=== PATIENT | male | born 1980 | race Caucasian/White ===

== ENCOUNTER 2022-03-15 00:27 | Inpatient (IN) | payer OTHER ==
[~2022-03-15] VITALS: Ht 188 cm; Wt 165.8 kg
[2022-03-15 02:54] LABS: Source, Urine Foley catheter
[2022-03-15 03:01] LABS: Bilirubin, Urine Neg (Neg); Blood, Urine 3+ (Neg); Glucose Qualitative, Urine Neg (Neg); Ketones, Urine Neg (Neg); Leukocyte Esterase, Urine 1+ (Neg); Nitrite, Urine Neg (Neg); Protein, Urine 2+ (Neg); Urobilinogen, Urine 1+ (Normal)
[2022-03-15 03:05] LABS: Appearance, Urine Clear (Clear); Color, Urine Yellow (P-Yellow)
[2022-03-15 03:08] LABS: Bacteria Not Seen /hpf; Granular Casts 0-2 /lpf (0); Squamous Epithelial Cells Rare /hpf (Few); White Blood Cells, Urine 0-2 /hpf (0-5)
[2022-03-15] MEDS ORDERED: HUMIRA40 MG/0.2 INJ (03:17)
[2022-03-15] MEDS ORDERED: CARV3.125 PO (03:17)
[2022-03-15] MEDS ORDERED: NAPR220 PO (03:18)
[2022-03-15] MEDS ORDERED: LISI5 PO (03:18)
[2022-03-15] MEDS ORDERED: OMEP20ER PO (03:19)
[2022-03-15] MEDS ORDERED: ZINC220 PO (03:19)
[2022-03-15 03:25] LABS: BASOPHILS ABSOLUTE AUTO 0.04 K/mm3 (0.00-0.23); BASOPHILS PERCENT AUTO 1 % (0-2); EOSINOPHILS ABSOLUTE AUTO 0.07 K/mm3 (0.00-0.68); EOSINOPHILS PERCENT AUTO 1 % (0-6); Hematocrit 41.3 % (37.0-53.0); Hemoglobin 13.4 g/dL (13.5-17.5); IMMATURE GRAN ABSOLUTE AUTO 0.06 K/mm3 (0.00-0.10); IMMATURE GRAN PERCENT AUTO 1 % (0-1); LYMPHOCYTES ABSOLUTE AUTO 1.49 K/mm3 (0.84-5.20); LYMPHOCYTES PERCENT AUTO 20 % (21-46); MONOCYTES ABSOLUTE AUTO 0.73 K/mm3 (0.16-1.47); MONOCYTES PERCENT AUTO 10 % (4-13); Mean Corpuscular HGB 31.1 pg (26.0-34.0); Mean Corpuscular HGB Conc 32.4 g/dL (31.5-36.5); Mean Corpuscular Volume 96 fL (80-100); Mean Platelet Volume 9.4 fL (9.1-12.4); NEUTROPHILS ABSOLUTE AUTO 5.01 K/mm3 (1.96-9.15); NEUTROPHILS PERCENT AUTO 68 % (41-73); Platelet Count 285 K/mm3 (150-400); RDW Standard Deviation 52.4 fL (35.1-46.3); Red Blood Cell Count 4.31 M/mm3 (4.30-5.90)
[2022-03-15 04:29] LABS: Albumin/Globulin Ratio 0.9 (0.8-1.8); Bilirubin, Total 0.4 mg/dL (0.1-1.0); Bun/Creatinine Ratio 19.9 (12.0-20.0); Creatinine, Blood 0.75 mg/dL (0.60-1.20); Globulin, Blood 3.4 g/dL (2.2-4.0); Potassium, Blood 4.5 mmol/L (3.5-5.5); Thyroid Stimulating Hormone 1.86 uIU/mL (0.360-4.800); Total Protein, Blood 6.4 g/dL (6.4-8.2)
[2022-03-15 04:43] LABS: PCO2 Arterial 44.4 mmHg (35-45); PO2 Arterial 82.6 mmHg (80-100); pH Blood Arterial 7.47 (7.35-7.45)
--- NOTE | 2022-03-15 06:15 | NUR ---
PT ARRIVED BY AMBULANCE THIS MORNING AROUND 0245 GM INTUBATED AND ON PROPOFOL W/TEMP MIRANDA & TWO PIV. EMT DOSED PT WITH PROPOFOL BOLUS FOR SEVERE AGITATION. DRIPS TITRATED TO COMFORT. RESTRAINTS INITIATED - MD BEDSIDE. SKIN CKECK PERFORMED W/RAMÓN RIBERA. PT RESTING IN BED - SIGNIFICANT OTHER UPDATED OVER THE PHONE (NISSHA). WILL CONTINUE TO MONITOR OXYGENATION AND EVALUATE RESTRAINT.
--- NOTE | 2022-03-15 07:11 | NUR ---
TOOK OVER CARE OF PT AT 0700. PT VENTILATED ON ACVC 22/500/70%/6. PROPOFOL DRIP AT 40
--- NOTE | 2022-03-15 13:44 | NUR ---
VENT SETTING INCREASED TO PEEP OF 15, 80% FiOZ
[2022-03-15 17:51] LABS: Adenovirus Not Detected (NOT DETECT); Coronavirus 229E Not Detected (NOT DETECT)
[2022-03-15 17:52] LABS: Bordetella pertussis Not Detected (NOT DETECT); Chlamydophila pneumoniae Not Detected (NOT DETECT); Coronavirus HKU1 Not Detected (NOT DETECT); Coronavirus NL63 Not Detected (NOT DETECT); Coronavirus OC43 Not Detected (NOT DETECT); Human Metapneumovirus Not Detected (NOT DETECT); Human Rhinovirus/Enterovirus Not Detected (NOT DETECT); Influenza A/2009-H1 Not Detected (NOT DETECT); Influenza A/H1 Not Detected (NOT DETECT); Influenza A/H3 Not Detected (NOT DETECT); Influenza B Not Detected (NOT DETECT); Mycoplasma pneumoniae Not Detected (NOT DETECT); Parainfluenza Virus 1 Not Detected (NOT DETECT); Parainfluenza Virus 2 Not Detected (NOT DETECT); Parainfluenza Virus 3 Not Detected (NOT DETECT); Parainfluenza Virus 4 Not Detected (NOT DETECT); Respiratory Syncytial Virus Not Detected (NOT DETECT); SARS-Cov-2 (COVID-19), BioFire Not Detected (NOT DETECT)
--- NOTE | 2022-03-15 18:42 | NUR ---
SUMMARY NEURO: PT FOLLOWS COMMANDS ON ALL EXTREMETIES, QUICK TO RESPOND ON AFTER SEDATION PAUSED. ABLE TO OPEN EYES WITH 60MCG OF PROPOFOL GTT. PERRLA. NEEDS PRN'S TO TOLERATE TURNS. LUNGS: WHEEZY THROUGHOUT THIS MORNING. COARSE UPPER LOBES, DIMINISHED BASES. SPUTUM CULTURE BACK POSITIVE FOR MANY GRAM (+) COCCI AND FEW GRAM (-) BACILLI. PCR NEGATIVE. RECENT POSITIVE COVID19 DURING ADMISSION AT [facility] A COUPLE WEEKS AGO. FIGHTS VENTILATOR AND DESATS QUICKLY. ETCO2 WHEN SEDATED IS AROUND 33. ATELECTASIS SHOWN IN CT CHEST FROM [facility]. ET TUBE WAS ADVANCED FROM 22-25 THIS SHIFT. GI: LIWS OBTAINED 450ML OF BILE. HYPOACTIVE BOWEL SOUNDS, FIRM AND DISTENDED ABDOMEN. HX OF CROHNS AND YVAN ANAL ABCESSES. : MIRANDA IN PLACE. HAZY KALEY URINE. PURULENT DRAINAGE AROUND URETHRAL OPENING. LOW URINE OUTPUT. SKIN: MELANIA BLE, SCATTERED SCABS/LESIONS CARIAC: HX OF RECENT NC. ECH COMPLETED TODAY
--- NOTE | 2022-03-15 22:22 | NUR ---
ASSUMED PT CARE AT 1900 PT IS INTUBATED AND SEDATED. PROPOFOL AT 60MCG/KG/MIN AND PRECEDEX AT 0.4 MCG/KG/HR. VENT AC/VC 22, VT 500, PEEP 15, FIO2 80%, RR 22, SPO2 93%, ETCO2 33. PT NOT RESPONSIVE AT THIS TIME; THEREFORE, DECREASED PROPOFOL TO 55MCG/KG/MIN. OG TO LIS WITH GREEN BILE OUT. MIRANDA IS PATENT AND DRAINING DARK YELLOW/GREEN URINE TO GRAVITY. FAMILY IN TO VISIT EARLIER WITH UPDATES GIVEN ON PT'S CONDITION. SEE SHIFT ASSESSMENT FOR FURTHER DETAILS
[2022-03-16 04:14] LABS: BASOPHILS ABSOLUTE AUTO 0.04 K/mm3 (0.00-0.23); BASOPHILS PERCENT AUTO 1 % (0-2); EOSINOPHILS ABSOLUTE AUTO 0.13 K/mm3 (0.00-0.68); EOSINOPHILS PERCENT AUTO 2 % (0-6); Hematocrit 43.2 % (37.0-53.0); Hemoglobin 13.9 g/dL (13.5-17.5); IMMATURE GRAN ABSOLUTE AUTO 0.06 K/mm3 (0.00-0.10); IMMATURE GRAN PERCENT AUTO 1 % (0-1); LYMPHOCYTES ABSOLUTE AUTO 1.49 K/mm3 (0.84-5.20); LYMPHOCYTES PERCENT AUTO 21 % (21-46); MONOCYTES ABSOLUTE AUTO 0.83 K/mm3 (0.16-1.47); MONOCYTES PERCENT AUTO 12 % (4-13); Mean Corpuscular HGB 31.1 pg (26.0-34.0); Mean Corpuscular HGB Conc 32.2 g/dL (31.5-36.5); Mean Corpuscular Volume 97 fL (80-100); Mean Platelet Volume 10.1 fL (9.1-12.4); NEUTROPHILS ABSOLUTE AUTO 4.68 K/mm3 (1.96-9.15); NEUTROPHILS PERCENT AUTO 65 % (41-73); Platelet Count 288 K/mm3 (150-400); RDW Coefficient Variation 15.7 % (11.7-14.2); RDW Standard Deviation 55.8 fL (35.1-46.3); Red Blood Cell Count 4.47 M/mm3 (4.30-5.90); White Blood Cell Count 7.23 K/mm3 (4.00-11.30)
[2022-03-16 04:32] LABS: Albumin/Globulin Ratio 0.9 (0.8-1.8); Bilirubin, Total 0.4 mg/dL (0.1-1.0); Bun/Creatinine Ratio 16.6 (12.0-20.0); Calcium, Blood 8.8 mg/dL (8.5-10.1); Creatinine, Blood 0.73 mg/dL (0.60-1.20); Globulin, Blood 3.4 g/dL (2.2-4.0); Magnesium, Blood 2.4 mg/dL (1.6-2.4); Phosphorus, Blood 4.2 mg/dL (2.5-4.9); Total Protein, Blood 6.4 g/dL (6.4-8.2)
--- NOTE | 2022-03-16 05:45 | NUR ---
END OF SHIFT SUMMARY NO SIGNIFICANT CHANGES SINCE LAST ENTRY. SEDATION DECREASED DOWN TO 40MCG/KG/MIN ON THE PROPOFOL. PRECEDEX REMAINS AT 0.4 MCG/KG/HR. PT ABLE TO GRIMACE AND WITHDRAWAL FROM NOXIOUS STIMULI. UNABLE TO OPEN EYES OR FOLLOW COMMANDS. OCCASIONALLY PT WILL HAVE COUGHING EPISODES, TRIGGERING HIGH PEAK PRESSURES; HOWEVER, IF LEFT ALONE PT WILL RECOVER WITH NO FURTHER INTERVENTION NEEDED. VITAL SIGNS HAVE BEEN STABLE THIS SHIFT, SEE FLOWSHEET. MIRANDA CATHETER PUTTING OUT DARK YELLOW/GREEN URINE; 1400CC ACCOUNTED FOR THIS SHIFT. OG REMAINS TO LIS WITH LARGE AMOUNTS OF GREEN BILE; SEE I/O. WILL CONTINUE TO MONITOR UNTIL REPORT IS HANDED OFF TO ONCOMING RN.
--- NOTE | 2022-03-16 08:00 | NUR ---
TOOK OVER CARE OF PT AT 0700. PT VENTED ON VCAC 22/500/80%/15. PROPOFOL AT 40, AND PRECEDEX RUNNING AT .4
[2022-03-16 11:23] LABS: Prolactin 19.7 ng/mL (2.5-17.4)
--- NOTE | 2022-03-16 17:45 | NUR ---
SUMMARY NEURO: PT WAS ASSED DURING SEDATION VECATION THIS AM. PT WOULD NOT RESPOND TO DEEP PAIN STIMULI IN BUE, BLE WERE STIFF IN DECERBRATE POSITION WITH SLIGHT TREMOR OF THE RIGHT LEG. PT ONLY OPENED THEIR EYES AFTER VIGOROUS STERNAL RUB. STILL NO MOVMENT IN UPPER EXTREMETIES. PUPILS REACTIVE AND EQUAL AT THIS TIME. CONCERN FOR POSSIBLE SEIZURE, PT WAS THEN GIVEN 4MG ATIVAN PUSH, SOON AFTER HE WAS ABLE TO PURPOSFULLY MOVE ALL EXTREMETIES. SEDATION WAS RESTARTED BEFORE PT HAD OPPORTUNITY TO FOLLOW COMMANDS IF ABLE. SEDATION WAS OFF FOR 15 MINUTES. PREVIOUSLY ON 03/15 PT WAS ABLE TO OPEN THEIR EYES ON 60MCG OF PROPOFOL AND FOLLOWED COMMANDS AFTER SEDATION WAS ONLY PAUSED FOR 2 MINUTES. PROLACTIN LEVELS DRAWN FROM AM LABS OF 19.7 LUNGS: VENTILATED ON ACVC, 22/500/15/80%. DIMINISHED UPPER LOBES, ABSENT BASES. PT REQUIRING MORE FIO2 DURING DEEP TURNS TOWARDS THE RIGHT. ETCO2 MID 30'S CARDIAC: NSR, HR IN 80'S, TRACE EDEMA BLE. ECHO STILL NOT RESULTED. SKIN: CHRONIC MELANIA/BROWN DISCOLORED BLE, SCATTERED LESIONS/SCABS. GI: LIWS WITH 500ML TOTAL THIS SHIFT OF GREEN BILE. : TEA COLORED URINE. MIRANDA CARE COMPLETED TWICE AND IODINE USED AROUND URETHRA.
--- NOTE | 2022-03-16 19:15 | NUR ---
ASSUMPTION OF CARE PT REMAINS INTUBATED WITH VENT SETTINGS AC/VC+ 22/500/15/80%. HE IS RECEIVING PROPOFOL 40MCG/KG/MIN, PRECEDEX 0.4MCG/KG/HR, AND NS TKO. SINUS ON MONITOR WITH RATE IN 80S. SBP 140S. CORE TEMP 100.9. MULTIPLE ICE PACKS PLACED AND FAN PLACED ON BEDSIDE TABLE. MIRANDA PATENT AND DRAINING TEA COLORED URINE WITH LARGE AMOUNT OF SEDIMENT. SEE SHIFT ASSESSMENT.
--- NOTE | 2022-03-16 20:31 | NUR ---
INITIAL ASSESSMENT PROPOFOL TITRATED TO 20MCG/KG/MIN AND PRECEDEX CONTINUED AT 0.4MCG/KG/HR. HE IS ABLE TO OPEN EYES TO VERBAL STIMULI. AT FIRST HE HAD A SOMEWHAT UPWARD GAZE BUT HE TRACKS MOVEMENTS AND WILL MAKE EYE CONTACT IF DIRECTED. HE MAKES SMALL PURPOSEFUL MOVEMENTS WTIH ALL EXTREMITIES. HE HAS STRONG BILAT HAND SQUEEZES, WIGGLES TOES TO COMMAND. HE NODS/SHAKES HEAD TO ANSWER QUESTIONS. HE APPEARS TO FOLLOW CONVERSATION BY FACIAL EXPRESSIONS AND HEAD NODDING. WHEN TOLD HE IS IN [place] AT [facility], HE NODS HEAD YES. INFORMED FAMILY HAS CALLED FOR UPDATES, HE SMILES AND NODS. WHEN ASKED IF HE IS IN PAIN, HE NODS HEAD YES. OCCASIONAL GRIMACING. MEDICATED PER EMAR AND PROPOFOL TITRATED BACK TO 40MCG/KG/MIN. NO CHANGES IN HR OR BP DURING THIS TIME. SINCE APPLICATION OF ICE PACKS AND FAN, CORE TEMP HAS DECREASED TO 100.2.
--- NOTE | 2022-03-17 05:19 | NUR ---
SHIFT SUMMARY PT REMAINS INTUBATED WITH VENT SETTINGS AC/VC 22/500/15/55%. HE IS RECEIVING PROPOFOL 40MCG/KG/MIN, PRECEDEX 0.4MCG/KG/HR, AND NS TKO. EVEN WITH SEDATION, HE OCCASIONALLY MAKES SMALL MOVEMENTS WITH EXTREMITIES AND FACIAL EXPRESSIONS. OGT CONNECTED TO LOW INT SUCTION, 300ML OF GREEN BILE THIS SHIFT. BOWEL TONES HYPOACTIVE. MIRANDA PATENT, DRAINING TEA COLORED URINE WITH MODERATE AMOUNT OF SEDIMENT. BILAT SOFT WRIST RESTRAINTS REMAIN IN PLACE. VSS THROUGHOUT SHIFT. WILL REPORT TO ONCOMING RN.
--- NOTE | 2022-03-17 07:24 | NUR ---
TOOK OVER CARE OF PT AT 0700, PT VENTED ON ACVC 22/500/55%/15. PT SEDATED WITH 40 OF PROPOFOL AND .4 OF PRECEDEX
--- NOTE | 2022-03-17 18:11 | NUR ---
SUMMARY NEURO; PT FOLLOWED COMMANDS WITH ALL EXTREMETIES WITH EQUAL STRENGTH DURING SEDATION VACATION, PUPILS EQUAL,ROUND, REACTIVE. ALL BRAINSTEM REFLEXES INTACT. LUNGS: LUNGS SOUND IMPROVING IN LOWER LOBES. COPIOUS SECERETIONS. GI; UPPER QUADRANTS ARE ABSENT OF BOWEL SOUNDS, HYPOACTIVE IN LOWER QUADRANTS. 900ML OF OG OUTPUT. NO BOWEL MOVEMENT SINCE ADMISSION : KALEY COLORED URINE, PURULENT URETHRAL DRAINAGE. CARDIAC; ON TELEMETR, TRACE EDEMA BUE AND BLE, BROWN DISCOLORED LE'S
--- NOTE | 2022-03-17 19:10 | NUR ---
ASSUMPTION OF CARE PT REMAINS INTUBATED WITH VENT SETTINGS AC/VC+ 22/500/15/55%. HE IS RECEIVING PROPOFOL 60MCG/KG/MIN, PRECEDEX 0.4MCG/KG/HR, AND NS TKO. OGT TO LOW INT SUCTION DRAINING GREEN BILE. BOWEL TONES HYPOACTIVE. LUNGS CLEAR AND DIM THROUGHOUT. MODERATE THICK/CLEAR ETT SECRETIONS. LARGE AMOUNT OF THIN/CLEAR ORAL SECRETIONS. MIRANDA PATENT AND DRAINING TEA COLORED URINE TO GRAVITY. CORE TEMP 100.5. MEDICATED PER EMAR, ICE PACKS AND FAN APPLIED. VSS AT THIS TIME. SEE SHIFT ASSESSMENT.
[2022-03-18 03:50] LABS: BASOPHILS ABSOLUTE AUTO 0.03 K/mm3 (0.00-0.23); BASOPHILS PERCENT AUTO 1 % (0-2); EOSINOPHILS PERCENT AUTO 3 % (0-6); Hematocrit 40.7 % (37.0-53.0); Hemoglobin 13.9 g/dL (13.5-17.5); IMMATURE GRAN ABSOLUTE AUTO 0.05 K/mm3 (0.00-0.10); IMMATURE GRAN PERCENT AUTO 1 % (0-1); LYMPHOCYTES PERCENT AUTO 19 % (21-46); MONOCYTES ABSOLUTE AUTO 0.57 K/mm3 (0.16-1.47); MONOCYTES PERCENT AUTO 9 % (4-13); Mean Corpuscular HGB 32.9 pg (26.0-34.0); Mean Corpuscular HGB Conc 34.2 g/dL (31.5-36.5); Mean Corpuscular Volume 96 fL (80-100); Mean Platelet Volume 10.2 fL (9.1-12.4); NEUTROPHILS ABSOLUTE AUTO 4.36 K/mm3 (1.96-9.15); NEUTROPHILS PERCENT AUTO 68 % (41-73); Platelet Count 294 K/mm3 (150-400); RDW Coefficient Variation 15.5 % (11.7-14.2); RDW Standard Deviation 55.4 fL (35.1-46.3); Red Blood Cell Count 4.23 M/mm3 (4.30-5.90); White Blood Cell Count 6.41 K/mm3 (4.00-11.30)
[2022-03-18 05:19] LABS: PCO2 Arterial 49.9 mmHg (35-45); PO2 Arterial 67.1 mmHg (80-100); pH Blood Arterial 7.44 (7.35-7.45)
--- NOTE | 2022-03-18 06:34 | NUR ---
SHIFT SUMMARY PT REMAINS INTUBATED WITH VENT SETTINGS AC/VC+ 22/500/10/55%. HE IS RECEIVING PROPOFOL 50MCG/KG/MIN, PRECEDEX 0.4MCG/KG/HR, AND NS TKO. NO ACUTE CHANGES OVER NIGHT. MODERATE AMOUNT OF THICK WHITE ETT SECRETIONS, LARGE AMOUNT OF CLEAR ORAL SECRETIONS. BOWEL TONES HYPOACTIVE. OGT CONNECTED TO LOW INT SUCTION, 950ML GREEN BILE THIS SHIFT. MIRANDA PATENT AND DRAINING TO GRAVIT. URINE IS TEA COLORED WITH MODERATE AMOUNT OF SEDIMENT AND SHIFT OUTPUT OF 275ML. VSS. WILL REPORT TO ONCOMING RN.
[2022-03-18 07:52] LABS: Albumin, Blood 2.8 g/dL (3.4-5.0); Albumin/Globulin Ratio 0.7 (0.8-1.8); Bilirubin, Total 0.6 mg/dL (0.1-1.0); Bun/Creatinine Ratio 17.5 (12.0-20.0); Creatinine, Blood 0.63 mg/dL (0.60-1.20); Globulin, Blood 3.9 g/dL (2.2-4.0); Magnesium, Blood 2.2 mg/dL (1.6-2.4); Total Protein, Blood 6.7 g/dL (6.4-8.2)
--- NOTE | 2022-03-18 14:53 | NUR ---
DR SANABRIA ROUNDED NO NEW ORDERS, DR STONER ROUNDED REPORTED, INCREASED SECRETIONS, RESTRAINTS IN PLACE, LIQUICIL DOUBLE DOSE FOR NUTRITION FOR PATIENT PER SUPERVISOR PLASTERING, REPORTED TO DR STONER, TM
--- NOTE | 2022-03-18 19:10 | NUR ---
ASSUMED CARE. REPORT RECEIVED FROM NATY RIBERA. PT IN BED, SEDATED AND VENTILATED VIA ETT. VENT SETTINGS: AC/VC 22/500/15/55%. OG TUBE IN PLACE TO LOW INT SUCTION. PG IN JENNY, IV IN R/HAND. PROPOFOL AT 70 MCG/KG/MIN, PRECEDEX 0.8 MCG/KG/HR, D5/1/2NS AT 75 ML/HR. MIRANDA IN PLACE. SWB RESTRAINTS IN PLACE. VS STABLE, WILL CONTINUE TO MONITOR.
[2022-03-19 04:06] LABS: Source, Urine Foley catheter
[2022-03-19 04:10] LABS: Bilirubin, Urine Neg (Neg); Blood, Urine 4+ (Neg); Glucose Qualitative, Urine Neg (Neg); Ketones, Urine Neg (Neg); Leukocyte Esterase, Urine Neg (Neg); Nitrite, Urine Neg (Neg); Protein, Urine 3+ (Neg); Urobilinogen, Urine NORM (Normal)
[2022-03-19 04:21] LABS: BASOPHILS ABSOLUTE AUTO 0.02 K/mm3 (0.00-0.23); BASOPHILS PERCENT AUTO 0 % (0-2); EOSINOPHILS ABSOLUTE AUTO 0.14 K/mm3 (0.00-0.68); EOSINOPHILS PERCENT AUTO 2 % (0-6); Hematocrit 44.5 % (37.0-53.0); Hemoglobin 14.1 g/dL (13.5-17.5); IMMATURE GRAN ABSOLUTE AUTO 0.07 K/mm3 (0.00-0.10); IMMATURE GRAN PERCENT AUTO 1 % (0-1); LYMPHOCYTES ABSOLUTE AUTO 1.27 K/mm3 (0.84-5.20); LYMPHOCYTES PERCENT AUTO 17 % (21-46); MONOCYTES ABSOLUTE AUTO 0.63 K/mm3 (0.16-1.47); MONOCYTES PERCENT AUTO 9 % (4-13); Mean Corpuscular HGB 30.7 pg (26.0-34.0); Mean Corpuscular HGB Conc 31.7 g/dL (31.5-36.5); Mean Corpuscular Volume 97 fL (80-100); Mean Platelet Volume 9.5 fL (9.1-12.4); NEUTROPHILS ABSOLUTE AUTO 5.24 K/mm3 (1.96-9.15); NEUTROPHILS PERCENT AUTO 71 % (41-73); Platelet Count 272 K/mm3 (150-400); RDW Coefficient Variation 15.1 % (11.7-14.2); RDW Standard Deviation 54.4 fL (35.1-46.3); White Blood Cell Count 7.37 K/mm3 (4.00-11.30)
[2022-03-19 04:28] LABS: Appearance, Urine Hazy (Clear); Color, Urine Yellow (P-Yellow)
[2022-03-19 04:29] LABS: Bacteria Rare /hpf; Squamous Epithelial Cells Few /hpf (Few); White Blood Cells, Urine Not Seen /hpf (0-5)
[2022-03-19 04:30] LABS: Amorphous Light (0-Heavy); Mucus Mod (0-Heavy)
[2022-03-19 04:46] LABS: Albumin, Blood 2.7 g/dL (3.4-5.0); Anion Gap 5 mmol/L (6-16); Blood Urea Nitrogen 11 mg/dL (8-24); Bun/Creatinine Ratio 16.6 (12.0-20.0); CO2, Blood 33 mmol/L (21-32); Calcium, Blood 8.9 mg/dL (8.5-10.1); Chloride, Blood 103 mmol/L (98-108); Creatinine, Blood 0.66 mg/dL (0.60-1.20); Glomerular Filtration Rate 121 (60-); Glucose, Blood 125 mg/dL (70-99); Phosphorus, Blood 3.7 mg/dL (2.5-4.9); Potassium, Blood 3.7 mmol/L (3.5-5.5); Sodium, Blood 141 mmol/L (136-145)
--- NOTE | 2022-03-19 06:30 | NUR ---
SHIFT SUMMARY. PT CONTINUES VENTILATED AND SEDATED, FIO2 TITRATED UP TO 75 DURING SHIFT, CURRENT SETTINGS: AC/VC+ 22/500/15/75%. PROPOFOL AT 70 MCG/KG/MIN, PRECEDEX AT 1 MCG/KG/HR, D5/ 1/[address], 500 MLS OUT THIS SHIFT. TEMP MIRANDA REPLACED DURING SHIFT, URINE OUTPUT 3150 MLS. VS STABLE SEE SHIFT ASSESSMENT FOR FURTHER DETAILS. WILL CONTINUE TO MONITOR AND REPORT OFF TO DAYSHIFT RN.
--- NOTE | 2022-03-19 08:13 | NUR ---
ASSUMED CARE BEDSIDE REPORT FROM SHAY RIBERA AT 0700. PT INTUBATED AND SEDATED. VENT SETTINGS AC/VC+ 22/500/0.9/15/75%. LUNGS INITIALLY COARSE, DIM IN BASES AFTER BREATHING TX AND SUCTION. THIN CLEAR SECRETIONS THROUGH ETT. O2 SATS MID 90'S. BED CPT STARTED. PROPOFOL AND PRECEDEX GTT FOR SEDATION. PT NOT RESPONSIVE TO PAINFUL STIMULI, GRIMACES c ORAL CARE. DOES NOT FOLLOW COMMANDS. WILL TITRATE SEDATION DOWN. OGT TO LIS, GREEN BILE OUT, CLAMPED FOR MEDS. ABD OBESE, SOFT, NON TENDER. HYPOACTIVE BT. TEMP PROBE MIRANDA PATENT, DRAINING CLEAR YELLOW URINE TO GRAVITY. TEMP 100.7, FANS PLACED. PIV X 2, POWERGLIDE TO RUE, DRESSING C/D/I. WILL CONTINUE TO MONITOR.
--- NOTE | 2022-03-19 09:18 | NUR ---
SEDATION VACATION WHEN PROPOFOL AT 45 MCG/KG/MIN, PRECEDEX 1.0 MCG/KG/HR, PT ABLE TO OPEN EYES SPONT, FOLLOW SIMPLE COMMANDS. SHAKES HEAD YES WHEN ASKED ABOUT PAIN. MEDICATED c FENTANYL PRN.
--- NOTE | 2022-03-19 17:38 | NUR ---
SHIFT SUMMARY PT REMAINS INTUBATED AND SEDATED. PROPOFOL AND PRECEDEX GTT FOR SEDATION. OCCASIONALLY COUGHS, PULLS ON RESTRAINTS. MEDICATED c FENTANYL PRN. FOLLOWS COMMANDS WHEN SEDATION LIGHTENED. VENT SETTINGS AC/VC+ 22/500/0.9/18/60%%. LUNGS DIM. MOSTLY THIN SECRETIONS, OCCASIONAL THICK YELLOW. CT COMPLETED, RIGHT PE, LOVENOX STARTED. SR, RATE 70'S. BP STABLE. OGT TO LIS, 450 ML GREEN BILE OUT. MIRANDA PATENT, DRAINED 1100 ML KALEY URINE TO GRAVITY. IBUPROPEN AND FAN FOR TEMP. WILL CONTINUE TO MONITOR UNTIL REPORT TO ONCOMING NURSE.
--- NOTE | 2022-03-19 19:12 | NUR ---
Assumed care. Report received from colin RIBERA. Pt sedated and ventilated, vent settings: AC/VC+ 22/500/18/60%. OG tube in place, low intermittent suction. Propofol at 55 mcg/kg/min, precedex 1.4 mcg/kg/hr, D5/1/2NS 75 ml/hr. Richards in place, draining to gravity. Will continue to monitor.
[2022-03-20 04:18] LABS: Albumin, Blood 2.6 g/dL (3.4-5.0); Anion Gap 6 mmol/L (6-16); Blood Urea Nitrogen 13 mg/dL (8-24); Bun/Creatinine Ratio 19.1 (12.0-20.0); CO2, Blood 31 mmol/L (21-32); Calcium, Blood 8.7 mg/dL (8.5-10.1); Chloride, Blood 104 mmol/L (98-108); Creatinine, Blood 0.68 mg/dL (0.60-1.20); Glomerular Filtration Rate 120 (60-); Glucose, Blood 157 mg/dL (70-99); Phosphorus, Blood 3.9 mg/dL (2.5-4.9); Potassium, Blood 3.7 mmol/L (3.5-5.5); Sodium, Blood 141 mmol/L (136-145)
--- NOTE | 2022-03-20 06:25 | NUR ---
SHIFT SUMMARY. PT CONTINUES ON VENTILATOR, NO CHANGES TO SETTINGS THIS SHIFT. AVE PEAK PRESSURES SHALINI FROM HIGH TWENTIES TO MID THIRTIES, O2 SATS REMAIN IN 90s. 75O MLS GREEN/BILE OUT OF OG TUBE. IV PUMP SETTINGS: PROPOFOL 65 MCG/KG/MIN, PRECEDEX 1.4 MCG/KG/HR, D5/1/2NS AT 75 ML/HR. ADDITIONAL ATIVAN/FENTANYL GIVEN FOR COMFORT/AGITATION, SEE EMAR. 750 MLS DARK/TEA COLORED URINE OUT OF MIRANDA. VS STABLE THROUGHOUT SHIFT, SEE ASSESSMENT FOR FURTHER DETAILS. WILL CONTINUE TO MONITOR AND REPORT OFF TO DAYSHIFT RN.
--- NOTE | 2022-03-20 07:54 | NUR ---
ASSUMED CARE BEDSIDE REPORT FROM SHAY RIBERA. PT INTUBATED AND SEDATED. VENT SETTINGS AC/VC+ 22/500/0.9/18/60%. LUNGS DIM IN BASES. SCANT SECRETIONS FROM ETT, THIN WHITE. O2 SATS >96%. PROPOFOL AND PRECEDEX FOR SEDATION. PT c SLIGHT GRIMACE TO ORAL CARE ONLY, NO OTHER RESPONSE TO PAINFUL STIMULI. WILL TITRATE SEDATIVES DOWN. SR, RATE 70'S. BP STABLE. FEBILE, ICE PACKS AND FANS IN PLACE. OGT CLAMPED FOR MEDS. ABD OBESE, DISTENDED. HYPOACTIVE BT. MIRANDA PATENT, DRAINING KALEY/TEA COLORED URINE TO GRAVITY. WILL CONTINUE TO MONITOR.
--- NOTE | 2022-03-20 17:07 | NUR ---
SHIFT SUMMARY NO ACUTE CHANGES THIS SHIFT. REMAINS INTUBATED AND SEDATED. VENT SETTINGS AC/VC+ 22/500/0.9/18/60%. O2 SATS >94%. LUNGS DIM, SMALL AMOUNT OF THIN CLEAR SECRETIONS THROUGH ETT, MODERATE AMOUNT OF ORAL SECRETIONS. COUGH/GAG REFLEX. PROPOFOL AND PRECEDEX GTT FOR SEDATION, MEDICATED c FENTANYL PRN. PT ABLE TO FOLLOWS SIMPLE COMMANDS. VOGT. NODS HEAD TO QUESTIONS. SR, RATE 70'S. BP STABLE. OGT CLAMPED, 500 ML GREEN BILE OUT THIS SHIFT. ABD FIRM, DISTENDED. HYPOACTIVE BT. SUPPOSITORY GIVEN THIS SHIFT, NO BM. MIRANDA PATENT, DRAINED 750 TEA COLORED URINE. WILL CONTINUE TO MONITOR UNTIL REPORT TO ONCOMING NURSE.
--- NOTE | 2022-03-20 19:00 | NUR ---
ASSUMED CARE ASSUMED CARE OF PATIENT. REMAINS INTUBATED- AC/VC+ 22/500/18/60%. RR 22. SEDATED WITH PRECEDEX AT 1.4MCG/KG/HR AND PROPOFOL AT 65MCG/KG/MIN. WITHDRAWS EXTREMITIES SLIGHTLY TO NOXIOUS STIMULI. NOT FOLLOWING ANY COMMANDS. BILATERAL SOFT WRIST RESTRAINTS IN PLACE TO PROTECT TUBES/LINES. MONITOR SHOWS NSR, RATE 70s. BP STABLE. TEMP 100.2F VIA MIRANDA TEMP PROBE. OG CLAMPED PER ORDER. MIRANDA PATENT AND DRAINING DARK YELLOW URINE. 1/2NS INFUSING AT 75CC/HR PER ORDER. SEE SHIFT ASSESSMENT FOR FULL ASSESSMENT.
[2022-03-21 04:21] LABS: BASOPHILS ABSOLUTE AUTO 0.03 K/mm3 (0.00-0.23); BASOPHILS PERCENT AUTO 0 % (0-2); EOSINOPHILS ABSOLUTE AUTO 0.19 K/mm3 (0.00-0.68); EOSINOPHILS PERCENT AUTO 2 % (0-6); Hemoglobin 13.5 g/dL (13.5-17.5); IMMATURE GRAN ABSOLUTE AUTO 0.12 K/mm3 (0.00-0.10); IMMATURE GRAN PERCENT AUTO 2 % (0-1); LYMPHOCYTES ABSOLUTE AUTO 1.64 K/mm3 (0.84-5.20); LYMPHOCYTES PERCENT AUTO 20 % (21-46); MONOCYTES ABSOLUTE AUTO 0.68 K/mm3 (0.16-1.47); MONOCYTES PERCENT AUTO 8 % (4-13); Mean Corpuscular HGB 30.4 pg (26.0-34.0); Mean Corpuscular HGB Conc 31.4 g/dL (31.5-36.5); Mean Corpuscular Volume 97 fL (80-100); Mean Platelet Volume 9.9 fL (9.1-12.4); NEUTROPHILS PERCENT AUTO 68 % (41-73); Platelet Count 278 K/mm3 (150-400); RDW Coefficient Variation 14.8 % (11.7-14.2); RDW Standard Deviation 53.4 fL (35.1-46.3); Red Blood Cell Count 4.44 M/mm3 (4.30-5.90); White Blood Cell Count 8.26 K/mm3 (4.00-11.30)
[2022-03-21 04:36] LABS: Albumin, Blood 2.4 g/dL (3.4-5.0); Anion Gap 5 mmol/L (6-16); Blood Urea Nitrogen 16 mg/dL (8-24); Bun/Creatinine Ratio 26.2 (12.0-20.0); CO2, Blood 29 mmol/L (21-32); Calcium, Blood 8.5 mg/dL (8.5-10.1); Chloride, Blood 106 mmol/L (98-108); Creatinine, Blood 0.61 mg/dL (0.60-1.20); Glomerular Filtration Rate 124 (60-); Glucose, Blood 114 mg/dL (70-99); Potassium, Blood 3.8 mmol/L (3.5-5.5); Sodium, Blood 140 mmol/L (136-145)
--- NOTE | 2022-03-21 06:26 | NUR ---
SHIFT SUMMARY REMAINS INTUBATED- VENT SETTINGS UNCHANGED. PT HAS HAD SIGNIFICANT INCREASE IN ORAL SECRETIONS. REQUIRES FREQUENT SUCTIONING OF COPIOUS AMOUNTS OF FROTHY CLEAR ORAL SECRETIONS. ALSO NOTED SOME INCREASE IN ETT SECRETIONS. STILL SEDATED WITH PROPOFOL AT 65MCG/KG/MIN AND PRECEDEX AT 1.4MCG/KG/HR. PT IS MORE AWAKE THIS AM WITH PERIODS OF AGITATION. MEDICATED WITH ATIVAN 2MG IV X 3 DOSES AND FENTANYL 50MCG IV X 1 DOSE FOR SEDATION ADJUNCT. PT MOVES ALL EXTREMITITES SPONTANEOUSLY AND WITHDRAWS TO NOXIOUS STIMULI. INTERMITTENTLY FOLLOWS SIMPLE COMMANDS THIS AM. VSS. TMAX 100.8F. OG REMAINS CLAMPED. MIRANDA PATENT- DRAINING DARK TEA-COLORED URINE. 1/2NS INFUSING AT 75CC/HR CARL ORDER. WILL REPORT TO ONCOMING RN WHEN AVAILABLE.
--- NOTE | 2022-03-21 08:30 | NUR ---
ASSUMED CARE BEDSIDE REPORT FROM TRANG RIBERA AT 0700. PT INTUBATED AND SEDATED. PT ASYNCHRONOUS c VENT, HIGH PEAK PRESSURES, COUGHING FREQUENTLY, COPIOUS ORAL SECRETION, MODERATE THIN CLEAR SECRETIONS FROM ETT. ATTEMPTED TO INCREASE SEDATION s SUCCESS. VENT SETTINGS CHANGED TO SPONT 8/18/50%, PT TOLERATING WELL, RR HIGH 20'S, TV HIGH 300'S. LUNGS DIM IN BASES. PROPOFOL AND PRECEDEX GTT FOR SEDATION, FENTANYL PRN. PT FOLLOWS SIMPLE COMMANDS. SR, RATE 90-100'S. BP STABLE. OGT CLAMPED. ABD DISTENDED, FIRM, HYPOACTIVE BT. MIRANDA PATENT, DRAINING TEA COLORED URINE TO GRAVITY. WILL CONTINUE TO MONITOR.
--- NOTE | 2022-03-21 12:24 | NUR ---
EXTUBATION PT ON SPONT, TOLERATING WELL. PROPOFOL AND PRECEDEX PLACED ON STANDBY. EXTUBATED AT 1130. WEAK, HOARSE VOICE. A&OX 3. PLACED ON HIGHFLOW, MOUTH BREATHING. O2 SATS > 90%.
--- NOTE | 2022-03-21 16:48 | NUR ---
Pt requested meeting with Palliative care to discuss POLST, choose decision maker, and fill out an Advanced Directive. He is alert and oriented and has chosen his S/O Katelinha Adityasmyer to make his medical decisions in the event he is incapacitated and unable to make them for himself. Advanced Directive paperwork given to pt rober. Pt states he'll review it tonight, and fill it out tomorrow.
--- NOTE | 2022-03-21 17:41 | NUR ---
SHIFT SUMMARY PT EXTUBATED THIS SHIFT. SEE PREVIOUS NOTE. PT ON 10L VIA HFNC. LUNGS COARSE, DIM IN BASES. PRODUCTIVE COUGH c THIN CLEAR SECRETIONS. ABLE TO MANAGE SECRETIONS c YANKEUR. VOICE STRONGER, A&OX 3. SLOW TO RESPOND. PASSED BEDSIDE SWALLOW. ADVANCING DIET TOLERATED. 2 LOOSE BMS THIS SHIFT. MIRANDA PATENT, DRAINED 1150 ML KALEY URINE TO GRAVITY. PT ABLE TO USE CALL LIGHT AND MAKE NEEDS KNOWN. GENERALIZED WEAKNESS. WILL CONTINUE TO MONITOR UNTIL REPORT TO ONCOMING NURSE.
--- NOTE | 2022-03-21 19:00 | NUR ---
ASSUMED CARE ASSUMED CARE OF PATIENT. AWAKE AND ALERT, WATCHING TV. ORIENTED X 3. PT STATES HE IS UNCLEAR ON RECENT EVENTS, THOUGH. CALM AND COOPERATIVE. C/O MILD SOB/DYSPNEA WITH EXERTION. FREQUENT COUGH- USING YANKAUER TO SUCTION SELF. SHALLOW RESPIRATIONS AT TIMES. O2 10L HFNC. C/O PAIN IN MID-CHEST AND UPPER ABDOMEN WITH DEEP BREATHING, COUGHING, AND MOVING. MONITOR SHOWS ST, RATE 120s. BP 164/106- PT RECEIVED ZESTRIL 5MG PO 30 MINUTES AGO. TEMP 100.2F VIA MIRANDA TEMP PROBE. TOLERATINT FULL LIQUID DIET. MIRANDA PATENT AND DRAINING TO GRAVITY- KALEY URINE. SEE SHIFT ASSESSMENT FOR FULL ASSESSMENT.
--- NOTE | 2022-03-21 20:45 | NUR ---
PAIN/HYPERTENSION DR. STONER NOTIFIED OF CONTINUED C/O CHEST/ABDOMEN PAIN WITH COUGHING, DEEP BREATHING, AND MOVING. NEW ORDER RECEIVED FOR A ONE TIME DOSE OF MOTRIN 600MG PO. ALSO NOTIFIED OF CONTINUED HYPERTENSION- NEW ORDER RECEIVED FOR HYDRALAZINE IV PRN.
--- NOTE | 2022-03-22 03:00 | NUR ---
MIRANDA CATHETER PT C/O FEELING LIKE HE "REALLY HAS TO URINATE". MIRANDA APPEARS TO BE DRAINING ADEQUATELY. CATHETER FLUSHED- NO RESISTANCE NOTED AND IMMEDIATE RETURN OF FLUSH AND URINE. BLADDER SCAN DONE AT THIS TIME- SHOWS MINIMAL URINE IN BLADDER.
--- NOTE | 2022-03-22 06:24 | NUR ---
SHIFT SUMMARY NO ACUTE CHANGES DURING NOC. REMAINS ON NRB 10L- SATS STABLE. CONTINUES WITH FREQUENT COUGH, PRODUCTIVE OF CLEAR SECRETIONS. DYSPNEA/SOB WITH EXERTION. CONTINUES TO C/O PAIN IN MID-CHEST/UPPER ABDOMEN WITH COUGHING, DEEP BREATHING, AND MOVING. MEDICATED WITH FENTANYL 50MCG IV X 5 DOSES AND ATIVAN 2MG IV X 2 DOSES FOR COMFORT. VSS. OCCASIONALLY HYPERTENSIVE. TMAX 100.4F. TOLERATING FULL LIQUID DIET. MIRANDA PATENT AND DRAINING TO GRAVITY- DARK YELLOW URINE. PASSED SEVERAL LOOSE STOOLS DURING SHIFT. WILL REPORT TO ONCOMING RN WHEN AVAILABLE.
--- NOTE | 2022-03-22 07:11 | NUR ---
ASSUME CARE: I have assumed care of pt at this time.
--- NOTE | 2022-03-22 14:50 | NUR ---
ASSUMPTION OF CARE PATIENT ALERT AND ORIENTED X 4, AFEBRILE. COMPLAINTS OF PAIN IN R CHEST AND THAT PAIN IS GREATER WHEN TAKES DEEP BREATH. SCHEDULED AND PRN PAIN MEDICATIONS BEING GIVEN. SBA WITH FFF. WEAK BUT ABLE TO MOVE ALL EXTREMITIES. PATIENT DEPRESSED. TEARFUL AT TIMES. PATIENT SATTING IN 90S ON VENTI MASK AT 14 L AND 55% FIO2. LUNGS CLEAR IN UPPER LOBES AND DIMINISHED IN LOWER LOBES. SOB WITH EXERTION. PRODUCTIVE COUGH NOTED. PATIENT IN ST, HR IN THE 1-TEENS. SBP IN THE 150S. SORE NOTED ON TONGUE; PATIENT STATES IT IS FROM A TOP TOOTH AND BOTTOM TOOTH PINCHING IT AND THAT IT WAS THERE BEFORE ADMIT. PATIENT STATES HE HAS NEW BROKEN TOP, R, BACK TOOTH. ABDOMEN MODERATELY DISTENDED. PATIENT ON REGULAR DIET. PATIENT OLIGURIC. RUBEN HUMPHREY'Carroll THIS AM PER REPORT. BROWN DISCOLORATION NOTED TO LES. NO OTHER SKIN ISSUES OBSERVED AT THIS TIME. IV FLUSHED AND SALINE LOCKED. PATIENT IN CHAIR. CALL LIGHT IN REACH. WILL CONTINUE TO MONITOR FREQUENTLY THROUGHOUT SHIFT.
--- NOTE | 2022-03-22 18:29 | NUR ---
SHIFT SUMMARY PATIENT REMAINED A AND O. PATIENT REMAINED AFEBRILE. PATIENT GIVEN PRN OXYCODONE OT FOR COMPLAINTS OF PAIN IN R CHEST WITH DEEP BREATHING. PATIENT REMAINED IN CHAIR; SHIFTING OWN HIPS. PATIENT REMAINED ON VENTI MASK AT 14 L AND 55% FIO2. PATIENT CONTINUED TO HAVE PRODUCTIVE COUGH. PATIENT REMAINED IN ST,HR LOW 100S TO 1-TEENS. SBP 120S TO 150S. NO BM SINCE TOOK OVER. TOLERATING REGULAR DIET WELL. URINE DARK TEA IN COLOR. PATIENT STATED HE IS "TRYING TO DRINK MORE WATER". NO CHANGES TO SKIN NOTED. IV SALINE LOCKED. ADMIT DATA COMPLETED. CALL LIGHT IN REACH. NO COMPLAINTS AT THIS TIME. REPORT WILL BE GIVEN TO ASSUMING SKETCH ARTIST NURSE SHORTLY.
--- NOTE | 2022-03-22 19:22 | NUR ---
ASSUMPTION OF CARE PT IS ALERT AND ORIENTED X4, SITTING UP IN THE CHAIR. CONVERSATION IS APPROPRIATE. OXYGEN SAT >90% ON VENTURI MASK 14L 55%. ST ON THE TENANT COORDINATOR W/BP W/IN NORMAL LIMITS. NO COMPLAINTS FROM PT AT THIS TIME /NO S/S OF ACUTE DISTRESS NOTED AT TIME OF ASSUMPTION OF CARE. PT DENIES ANY NEEDS.
[2022-03-23 06:20] LABS: Hematocrit 41.5 % (37.0-53.0); Hemoglobin 13.4 g/dL (13.5-17.5); Mean Corpuscular HGB 30.9 pg (26.0-34.0); Mean Corpuscular HGB Conc 32.3 g/dL (31.5-36.5); Mean Corpuscular Volume 96 fL (80-100); Mean Platelet Volume 9.5 fL (9.1-12.4); Platelet Count 273 K/mm3 (150-400); RDW Coefficient Variation 14.2 % (11.7-14.2); RDW Standard Deviation 50.3 fL (35.1-46.3); Red Blood Cell Count 4.34 M/mm3 (4.30-5.90); White Blood Cell Count 9.87 K/mm3 (4.00-11.30)
[2022-03-23 06:41] LABS: Albumin, Blood 2.8 g/dL (3.4-5.0); Anion Gap 6 mmol/L (6-16); Blood Urea Nitrogen 11 mg/dL (8-24); Bun/Creatinine Ratio 19.6 (12.0-20.0); CO2, Blood 31 mmol/L (21-32); Calcium, Blood 9.1 mg/dL (8.5-10.1); Chloride, Blood 101 mmol/L (98-108); Creatinine, Blood 0.56 mg/dL (0.60-1.20); Glomerular Filtration Rate 127 (60-); Glucose, Blood 109 mg/dL (70-99); Potassium, Blood 3.4 mmol/L (3.5-5.5); Sodium, Blood 138 mmol/L (136-145)
--- NOTE | 2022-03-23 07:00 | NUR ---
ASSUME CARE: I have assumed care of pt at this time.
--- NOTE | 2022-03-23 19:14 | NUR ---
SHIFT SUMMARY: Neuro: pt a/o x4. He is ambulatory with standby assist. Showered with minimal assistance today. Cardiac: SR to ST Respiratory: Venti mask titrated down to 11L 45%. He uses 10L NC for meals and transferring. GI/: voiding without difficulty. BM today. tolerating regular diet well Skin: no new breakdown noted
--- NOTE | 2022-03-23 20:00 | NUR ---
ASSUMED CARE OF PT AT 1915. REPORT RECEIVED. PT PRESENTS IN ROOM SITTING UP IN RECLINER CHAIR. PT ALERT AND ORIENTED. PLEASANT AND COOPERATIVE WITH CARE AND ASSESSMENT. NO COMPLAINTS OF DYSPNEA AT THIS TIME. PERFERS TO USE VENTURI MASK FOR HIGHER FLOW OXYGEN. PT COMPLIANT WITH KEEPING MASK IN PLACE. WILL REVIEW CHART AND PLAN OF CARE FOR THIS PT.
--- NOTE | 2022-03-23 22:00 | NUR ---
PT'S MAGUI CALLS TO INQUIRE ABOUT PATIENT. PASSWORD GIVEN ACCURATELY. UPDATE GIVEN. SHE STATES THAT SHE IS CONCERNED ABOUT PT'S MEMORY HAVING LAPSES. ALLOWED FOR HER TO EXPRESS HER FEELINGS AND FRUSTRATIONS. ALLOWED HER TO PARTICIPATE IN PLAN OF CARE TO HELP PT WITH MEMORY RECALL. NOTE GENERATED THAT WAS GIVEN TO PT TO HELP HIM RECALL SOME OF THE CONCERNS MAGUI HAS ADDRESSED.
--- NOTE | 2022-03-24 01:33 | NUR ---
REPORT CALLED TO U FOR TRANSFER. REPORT GIVEN IN SBAR FASHION. ALLOWED FOR QUESTIONS. PT IN AGREEMENT OF TRANSFER. PT LEAVES UNIT IN STABLE CONDITION WITH PERSONAL BELONGINGS.
[2022-03-24 04:02] LABS: Hematocrit 39.6 % (37.0-53.0); Hemoglobin 12.9 g/dL (13.5-17.5); Mean Corpuscular HGB 30.8 pg (26.0-34.0); Mean Corpuscular HGB Conc 32.6 g/dL (31.5-36.5); Mean Corpuscular Volume 95 fL (80-100); Mean Platelet Volume 9.8 fL (9.1-12.4); Platelet Count 283 K/mm3 (150-400); RDW Coefficient Variation 13.8 % (11.7-14.2); RDW Standard Deviation 48.3 fL (35.1-46.3); Red Blood Cell Count 4.19 M/mm3 (4.30-5.90); White Blood Cell Count 10.77 K/mm3 (4.00-11.30)
[2022-03-24 04:19] LABS: Albumin, Blood 2.8 g/dL (3.4-5.0); Anion Gap 4 mmol/L (6-16); Blood Urea Nitrogen 16 mg/dL (8-24); Bun/Creatinine Ratio 32.1 (12.0-20.0); CO2, Blood 32 mmol/L (21-32); Calcium, Blood 9.3 mg/dL (8.5-10.1); Chloride, Blood 99 mmol/L (98-108); Glomerular Filtration Rate 131 (60-); Glucose, Blood 115 mg/dL (70-99); Phosphorus, Blood 3.6 mg/dL (2.5-4.9); Potassium, Blood 3.8 mmol/L (3.5-5.5); Sodium, Blood 135 mmol/L (136-145)
--- NOTE | 2022-03-24 05:09 | NUR ---
PT TRANSFERED FROM ICU AT 0130 THIS A.M. A&OX3. TRANSFERED SELF FROM WHEELCHAIR TO RECLINER INDEPENDENTLY. ABLE TO DETACH PULSE OX AND AMBULATE TO BATHROOM INDEPENDENTLY, REATTACHED PULSE OX WHEN RETURNED TO BED. HR IS SINUS RHYTHM TO SINUS TACH LOW 100'S. PT ON VENTI MASK AT 8LPM AT PT REQUEST FOR COMFORT. PT ORIENTED TO NEW ROOM. WATCHING TV SITTING IN RECLINER. CALL NABEEL HARRELL.
--- NOTE | 2022-03-24 16:44 | NUR ---
SUMMARY PT HAS CONTINUED TO IMPROVE T/O THE SHIFT. HE HAS BEEN TITRATED OFF THE VENTIMASK TO 5L NC AND TOLERATING WELL. PT WAS GIVEN IV LASIX X1 DOES WITH GOOD RESULTS. PAIN IS MANAGEABLE. VSS STABLE. PLAN FOR POSSIBLE DC HOME IN THE NEXT FEW DAYS.
[2022-03-25 03:58] LABS: Hematocrit 38.8 % (37.0-53.0); Hemoglobin 12.4 g/dL (13.5-17.5); Mean Corpuscular HGB 30.2 pg (26.0-34.0); Mean Corpuscular Volume 95 fL (80-100); Mean Platelet Volume 10.1 fL (9.1-12.4); Platelet Count 306 K/mm3 (150-400); RDW Coefficient Variation 13.7 % (11.7-14.2); RDW Standard Deviation 47.8 fL (35.1-46.3)
[2022-03-25 04:14] LABS: Albumin, Blood 2.7 g/dL (3.4-5.0); Anion Gap 5 mmol/L (6-16); Blood Urea Nitrogen 20 mg/dL (8-24); Bun/Creatinine Ratio 39.4 (12.0-20.0); CO2, Blood 33 mmol/L (21-32); Calcium, Blood 9.3 mg/dL (8.5-10.1); Chloride, Blood 98 mmol/L (98-108); Creatinine, Blood 0.51 mg/dL (0.60-1.20); Glomerular Filtration Rate 131 (60-); Glucose, Blood 117 mg/dL (70-99); Phosphorus, Blood 4.1 mg/dL (2.5-4.9); Potassium, Blood 3.9 mmol/L (3.5-5.5); Sodium, Blood 136 mmol/L (136-145)
--- NOTE | 2022-03-25 05:19 | NUR ---
PT HAS SLEPT INTERMITENTLY THROUGHOUT THE NIGHT. UP TO BATHROOM TO VOID. DENIES ANY CONCERNS OR NEEDS. CALL LIGHT IN REACH.
--- NOTE | 2022-03-25 13:45 | NUR ---
PATIENT TRANSFERRED FROM PCU 14 TO ROOM 331. REPORT RECEIVED FROM BACILIO JENNINGS. PATIENT ORIENTED TO ROOM AND USE OF CALL LIGHT, HE IS A/OX4 AND INDEPENDENT IN ROOM. 5LO2 TO MAINTAIN SATS.
--- NOTE | 2022-03-26 04:43 | NUR ---
PT ALERT AND ORIENTED, AB SINDHU IN ROOM. SHOWER AT START OF SHIFT. DRESSING CHANGED ON POWER PORT AFTER WATER DAMAGE TO DRESSING. PT IS ON 5L NC.
[2022-03-26 06:07] LABS: Albumin, Blood 2.5 g/dL (3.4-5.0); Anion Gap 6 mmol/L (6-16); Blood Urea Nitrogen 15 mg/dL (8-24); Bun/Creatinine Ratio 36.1 (12.0-20.0); CO2, Blood 29 mmol/L (21-32); Chloride, Blood 101 mmol/L (98-108); Creatinine, Blood 0.42 mg/dL (0.60-1.20); Glomerular Filtration Rate 139 (60-); Glucose, Blood 113 mg/dL (70-99); Phosphorus, Blood 3.3 mg/dL (2.5-4.9); Potassium, Blood 4.3 mmol/L (3.5-5.5); Sodium, Blood 136 mmol/L (136-145)
--- NOTE | 2022-03-26 18:02 | NUR ---
PATIENT A/OX4, UP INDEPENDENTLY IN ROOM. WEANED DOWN TO 3LO2 VIA NC TODAY. OCCASIONAL PRODUCTIVE COUGH. VSS. RECEIVING LIDOCAINE SWISH AND SPIT FOR TOUNGUE WOUND AFTER MEALS WHICH IS HELPING. CHANGED YESTERDAY TO ELIQUIS TO TREAT PE. HAS SCHEDULED AND PRN PAIN MEDICATION TO TREAT R CHEST PAIN WITH GOOD RELIEF. CALM AND COOPERATIVE WITH CARE, CAN BE SOMEWHAT WITHDRAWN. PLAN IS TO D/C HOME WHEN STABLE. POWERGLIDE TO JENNY BULLOCK AND SL. CALLS APPROPRIATELY FOR ASSISTANCE.
--- NOTE | 2022-03-27 04:51 | NUR ---
A&OX4. V/S WNL. INDEPENDANT. REGULAR DIET. HAD A SHOWER. POWERGLIDE TO R) UPPER ARM. PRN OXYCONTIN GIVEN FOR PAIN PER EMAR. O2 @ 3LPM VIA N/C. SOB ON EXERTION NOTED. WILL CONTINUE TO MONITOR.
[2022-03-27 06:38] LABS: Albumin, Blood 2.6 g/dL (3.4-5.0); Anion Gap 4 mmol/L (6-16); Blood Urea Nitrogen 14 mg/dL (8-24); Bun/Creatinine Ratio 27.6 (12.0-20.0); CO2, Blood 35 mmol/L (21-32); Chloride, Blood 99 mmol/L (98-108); Creatinine, Blood 0.51 mg/dL (0.60-1.20); Glomerular Filtration Rate 131 (60-); Glucose, Blood 112 mg/dL (70-99); Phosphorus, Blood 4.4 mg/dL (2.5-4.9); Potassium, Blood 4.4 mmol/L (3.5-5.5); Sodium, Blood 138 mmol/L (136-145)
[2022-03-27] MEDS ORDERED: ELIQUIS5 M2 PO ×2 (10:45→10:48)
[2022-03-27] MEDS ORDERED: DOCU100 PO (10:49)
[2022-03-27] MEDS ORDERED: IPRAT-ALBUT 0.5-3 ML INH (10:50)
[2022-03-27] MEDS ORDERED: LIDOCAINE 2% MT (10:53)
[2022-03-27] MEDS ORDERED: MULVITA PO (10:55)
[2022-03-27] MEDS ORDERED: OXYC30 PO (10:56)
[2022-03-27] MEDS ORDERED: MIRALAX17 GM PO (10:57)
--- NOTE | 2022-03-27 13:39 | NUR ---
Home oxygen evaluation completed, patient will be going home on 2lpm, oxygen tank delivered to room. Hard script and work noted provided by MD. Reviewed discharge teaching, patient verbalized understanding. Removed IV from RUE. Patient left unit at 1315.
== END 2022-03-27 13:07 | disposition home or self-care (01) | DRG 207 ==
LOC: ICUW 00:27 → MEDS 02:28 → ICUE 02:28 → PCU 03-24 01:44 → MEDS 03-25 13:55
PROVIDERS: Internal Medicine; Internal Medicine Critical Care Medicine; ADMIT Internal Medicine
PROC: 5A1955Z Respiratory Ventilation, Greater than 96 Consecutive Hours (ICD-10-PCS; principal; 2022-03-15)
DX: I26.99 Other pulmonary embolism without acute cor pulmonale (principal); J18.9 Pneumonia, unspecified organism; J96.01 Acute respiratory failure with hypoxia; G92.8 Other toxic encephalopathy; J96.02 Acute respiratory failure with hypercapnia; K50.90 Crohn's disease, unspecified, without complications; Z68.42 Body mass index [BMI] 45.0-49.9, adult; R00.1 Bradycardia, unspecified; K12.0 Recurrent oral aphthae; R55 Syncope and collapse; E87.70 Fluid overload, unspecified; Z78.1 Physical restraint status; I10 Essential (primary) hypertension; G47.33 Obstructive sleep apnea (adult) (pediatric); E66.9 Obesity, unspecified; F10.20 Alcohol dependence, uncomplicated; Z88.6 Allergy status to analgesic agent; Z79.899 Other long term (current) drug therapy
CPT/HCPCS: 0202U; 36415; 36600; 71045; 71260; 80053; 80069; 81001; 82550; 82803; 82947; 83605; 83735; 83880; 84100; 84145; 84146; 84443; 84484; 85025; 85027; 87040; 87070; 87086; 87205; 93306; 94002; 94003; 94640; 94664; 94760; 94761; 94762; 97110; 97116; 97161; 97166; 97530; 97535; A9270; C1751; C9113; J0696; J1650; J1940; J2060; J2704; J3010; J3411; J7040; J7042; J7050; Q9967